=== PATIENT | female | born 1955 | race African-American/Black ===

== ENCOUNTER 2023-01-08 13:45 | Emergency (ER) | payer OTHER, MEDICAID ==
[~2023-01-08] VITALS: Ht 167.6 cm; Wt 113.0 kg
[~2023-01-08 13:45] MED LIST: METFORMIN; NORVASC; ZOCOR
[2023-01-08] MEDS ORDERED: AMLODIPINE 10MG TABLET PO ONE (14:30)
[2023-01-08] MEDS ORDERED: SODIUM CHLORIDE 0.9% 1,000 ML IV ONE (14:30)
[2023-01-08] MEDS ORDERED: AMLODIPINE 5MG TABLET PO NR (14:45)
[2023-01-08 15:36] LABS: BASOPHILS % 0.5 % (0.0-2.0); EOSINOPHILS % 1.2 % (0.0-5.0); HEMATOCRIT. 39.7 % (36.0-48.0); HEMOGLOBIN. 12.9 g/dL (12.0-16.0); LYMPHOCYTES % 33.7 % (20.0-50.0); MEAN CORPUSCULAR HEMOGLOBIN 27.9 pg (28.0-32.0); MEAN CORPUSCULAR VOLUME 85.9 fL (81.0-99.0); MEAN PLATELET VOLUME 9.7 fl (7.4-10.4); MONOCYTES % 6.5 % (2.0-8.0); NEUTROPHILS % 58.1 % (40.0-76.0); PLATELET 226 x1000/uL (130-400); RED BLOOD CELL COUNT 4.63 mill/uL (4.2-5.4); RED CELL DISTRIBUTION WIDTH 14.6 % (11.6-14.6)
[2023-01-08 15:50] LABS: CHLORIDE 106 mEq/L (98-107)
[2023-01-08 18:03] VITALS: BP 147/81
== END 2023-01-08 18:12 | disposition home or self-care (01) ==
LOC: ER 13:55
DX: R55 Syncope and collapse (principal); I10 Essential (primary) hypertension; E78.00 Pure hypercholesterolemia, unspecified
CPT/HCPCS: 36415; 71045; 80053; 83880; 84484; 85025; 93005; 99285; J7030

== ENCOUNTER 2024-03-03 07:47 | Emergency (ER) | payer OTHER, MEDICARE, MEDICAID ==
[~2024-03-03] VITALS: Ht 175.3 cm; Wt 147.0 kg
[2024-03-03 07:52] VITALS: TEMP 98; O2SAT 99
[2024-03-03] MEDS: COLCHICINE 0.6MG TABLET PO ONE (09:00)
[2024-03-03] MEDS ORDERED: KETOROLAC 60MG/2ML VIAL IM ONE (09:00)
[2024-03-03 09:15] VITALS: BP 184/82; PULSE 87; RESP 16
[2024-03-03] MEDS: KETOROLAC 30MG/ML VIAL IM NR (09:15)
[2024-03-03] MEDS ORDERED: MELO-104 MT (09:48)
[2024-03-03] MEDS ORDERED: TRAM50TA3 MT (09:48)
[2024-03-03] MEDS: TRAMADOL 50MG TABLET PO ONE (10:45)
== END 2024-03-03 10:58 | disposition home or self-care (01) ==
LOC: ER 07:47
DX: M17.11 Unilateral primary osteoarthritis, right knee (principal); E11.9 Type 2 diabetes mellitus without complications; E78.00 Pure hypercholesterolemia, unspecified; I10 Essential (primary) hypertension; Z98.51 Tubal ligation status; Z90.13 Acquired absence of bilateral breasts and nipples
CPT/HCPCS: 99284; 84550; 36415; 73562; 96372; J1885